=== PATIENT | female | born 2005 | race Caucasian/White ===

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

== ENCOUNTER 2024-03-31 03:45 | Emergency (ER) | payer MEDICAID ==
[~2024-03-31] VITALS: Ht 167.6 cm; Wt 120.2 kg
[~2024-03-31 03:45] MED LIST changes: -IBUP-1623 PO; +ONDA4TAB5 PO
[2024-03-31] MEDS ORDERED: ACET15SO5 EACH EAR (04:17)
[2024-03-31] MEDS: ACETAMINOPHEN 500 MG TABLET PO ONE (04:18)
[2024-03-31 04:26] VITALS: BP 118/72; TEMP 98; O2SAT 98
== END 2024-03-31 04:27 | disposition home or self-care (01) ==
LOC: ER 03:51
DX: H92.01 Otalgia, right ear (principal); Z79.899 Other long term (current) drug therapy; Z88.7 Allergy status to serum and vaccine
CPT/HCPCS: A4606; A4663; A9150